=== PATIENT | female | born 1975 ===

== ENCOUNTER 2017-05-18 11:49 | Day surgery (SDC) | payer OTHER ==
[~2017-05-18 11:49] MED LIST: Buffered Lidocaine 0.9% SYRIN* 5 ML/SYR SYRINGE INTRADERM ONE; Famotidine IV* 10 MG/ML 2 ML (20 mg) IV ONE; Famotidine IV* 10 MG/ML 2 ML (20 mg) ONE
[2017-05-18] MEDS ORDERED: fentaNYL* 50 MCG/ML 2 ML VIAL (100 MCG VIAL) ONE (11:50)
[2017-05-18] MEDS ORDERED: Midazolam* 1 MG/ML 5 ML VIAL (5 MG) ONE (11:50)
[2017-05-18 12:21] LABS: Hematocrit 42 % (35-47); Hemoglobin 14.6 g/dl (12.0-16.0); Mean Corpuscular HGB Conc 35 g/dl (31-36); Mean Corpuscular Hemoglobin 36 pg (27-31); Mean Corpuscular Volume 105 fL (80-97); Mean Platelet Volume 8 um3 (7.4-10.4); Red Blood Count 4.01 10^6/ul (4.0-5.4); Red Cell Distribution Width 13 % (10.5-15); White Blood Count 5.3 10^3/ul (3.5-10.8)
[2017-05-18] MEDS ORDERED: DiMENhydriNATE IV* 50 MG/ML VIAL IV PUSH PRN (12:32)
[2017-05-18] MEDS ORDERED: oxyCODONE TAB* 5 MG TAB PO PRN (12:32)
[2017-05-18] MEDS ORDERED: HYDROmorphone INJ* 1 MG/ML CARPUJECT SYRINGE IV PRN (12:32)
[2017-05-18] MEDS ORDERED: Acetaminophen TAB* 325 MG PO PRN (12:32)
[2017-05-18] MEDS ORDERED: Ondansetron INJ* 2 MG/ML VIAL ONE (12:58)
[2017-05-18] MEDS ORDERED: Lidocaine 2% PF * 5 ML VIAL ONE (12:58)
[2017-05-18] MEDS ORDERED: Ketorolac INJ* 30 MG/ML 1 ML VIAL ONE (12:58)
[2017-05-18] MEDS ORDERED: Propofol* 10 MG/ML 20 ML BTL IV PUSH ONE (12:58)
[2017-05-18] MEDS ORDERED: Lidocaine 1% INJ* 10 MG/ML 30 ML SDV ONE (13:04)
[2017-05-18 14:26] VITALS: BP 124/88
--- NOTE | 2017-05-19 10:49 | OP ---
OPERATIVE REPORT: DATE OF OPERATION: 05/18/17 - [facility] DATE OF : 73 SURGEON: Therese Chavez MD ANESTHESIOLOGIST: Dr. Powell. ANESTHESIA: Spinal. PRE-OPERATIVE DIAGNOSIS: Large right Bartholin's duct cyst. POST-OP DIAGNOSIS: Large right Bartholin's duct cyst. OPERATIVE PROCEDURE: Right Bartholin's duct cyst marsupialization. ESTIMATED BLOOD LOSS: Less than 10 mL. URINE OUTPUT: 75 mL. IV FLUIDS: 700 mL lactated Ringer's. MATERIALS TO LAB: Bartholin's cyst biopsy. INDICATIONS: This patient was a 41-year-old 1, para 0, who presented to the office this week, reporting about 10 years of a right Bartholin's duct cyst. Initially, her previous physician had recommended against any treatment as it was not extremely uncomfortable for her. However, over the years, it continued to get larger. The patient had it drained on 2 separate occasions over the last couple of years. The most recent one was about 4 months ago. A Word catheter was placed but fell out after only 2 days. The cyst re-formed quickly and the patient reports that she has had persistent significant discomfort with it. On examination in the office, the cyst measured about 5 cm and significantly distorted the vulva. There was no evidence of infection or abscess. We discussed her options and she desired to proceed with marsupialization in the operating room. She was counseled and consent was signed. FINDINGS: Large Bartholin's duct cyst on the right side as expected. Fluid within the cyst was a medium brown consistent with old blood, possible endometriosis. COMPLICATIONS: None. DESCRIPTION OF PROCEDURE: The risks, benefits, and alternatives were described to the patient and informed consent was obtained. The patient was taken to the operating room with IV running where spinal anesthesia was induced and found to be adequate. The patient was prepped and draped in a normal sterile fashion in the high lithotomy position in [facility]. A time-out was performed. The bladder was emptied. Lidocaine 1% was then injected just inside the introitus of the vagina on the right side and approximately 2.5 cm incision was then made with a 15 blade scalpel. The vaginal epithelium was grasped with an Allis clamp and retracted downward. The scalpel was then used to continue dissection down until the cyst wall had been successfully opened. The cyst drained a large amount of brown fluid, which was suctioned. The opening to the cyst was then extended to the full side of the incision, about 2 to 2.5 cm. Bleeding on the edges was very light and a few places were minimally cauterized. The entire cyst was then copiously irrigated with saline. The wall of the cyst was elevated and small biopsy was taken and sent for pathology. The cyst wall was then sutured to the vaginal epithelium with 2 running stitches, both internal and external to the introitus. This was done with 2-0 and 3-0 Vicryl. At that time, the cyst was completely drained and marsupialization was complete. Hemostasis was excellent. The patient was then returned to the supine position. The procedure was completed. The patient tolerated the procedure very well. Sponge, lap and needle counts were correct x2. [id number]/CPS #: [id number] MTDD
== END 2017-05-18 14:20 | disposition home or self-care (01) ==
LOC: OR 11:49
PROVIDERS: ATTEND Obstetrics & Gynecology
DX: N75.0 Cyst of Bartholin's gland (principal); F17.210 Nicotine dependence, cigarettes, uncomplicated; F41.9 Anxiety disorder, unspecified
CPT/HCPCS: 36415; 81025; 85025; 88304; J1885; J2001; J2250; J2405; J2704; J3010

== ENCOUNTER 2018-02-15 18:44 | Emergency (ER) | payer OTHER ==
[2018-02-15] MEDS ORDERED: Tetracaine 0.5% OPTH.SOL 4 ML* 1 DROP BTL BOTH EYES ONE (22:30)
[2018-02-15] MEDS ORDERED: Fluorescein Sod TOPICAL 0.6* 0.6 MG TEST OPHTHALMIC ONE ×3 (23:25→23:26)
--- NOTE | 2018-02-16 00:06 | ED ---
Throat Pain/Nasal Congestion - HPI Summary HPI Summary: Patient sent from [facility] to the ED for further evaluation of bilateral eye redness and discharge 4 days. States this decreased visual acuity 2 days. Denies eye pain, trauma, foreign body. Positive contact with, but states she doesn't want them for 2 weeks. Normally wears glasses. Denies fever , cough, sore throat, ear pain, BLACK, nasal discharge, CP, SOB, N/V/D, abdomen pain, change in urinary BM. - History of Current Complaint Chief Complaint: EDEyeProblem Time Seen by Provider: 02/15/18 20:59 Hx Obtained From: Patient Onset/Duration: Gradual Onset Severity: Moderate Associated Signs And Symptoms: Positive: Negative - Allergies/Home Medications Allergies/Adverse Reactions: Allergies Allergy/AdvReac Type Severity Reaction Status Date / Time No Known Allergies Allergy Verified 02/15/18 18:50 Home Medications: Home Medications NK [No Home Medications Reported] 02/16/18 [History Confirmed 02/16/18] PMH/Surg Hx/FS Hx/Imm Hx Endocrine/Hematology History: Denies: Hx Anticoagulant Therapy History: Reports: Hx Kidney Stones - hx of passed on own, Other Problems/ Disorders - right bartholin cyst Denies: Hx Dialysis Sensory History: Reports: Hx Contacts or Glasses - both, will wear glasses day of surgery, Hx Hearing Aid - bilateral Opthamlomology History: Reports: Hx Contacts or Glasses - both, will wear glasses day of surgery Neurological History: Denies: Hx CVA Psychiatric History: Reports: Hx Anxiety - prn med - Surgical History Surgery Procedure, Year, and Place: pt never had surgery Hx Anesthesia Reactions: No - never had surgery Infectious Disease History: No Infectious Disease History: Denies: Traveled Outside the [place] in Last 30 Days - Social History Alcohol Use: Weekly Alcohol Amount: reports 3-5 glasses wine per week Substance Use Type: Reports: None Smoking Status (MU): Current Every Day Smoker Type: Cigarettes Amount Used/How Often: reports 2 cigs per day for 10 years Review of Systems Constitutional: Negative Positive: Blurred Vision ENT: Negative Cardiovascular: Negative Respiratory: Negative Gastrointestinal: Negative Genitourinary: Negative Musculoskeletal: Negative Skin: Negative Neurological: Negative Psychological: Normal All Other Systems Reviewed And Are Negative: Yes Physical Exam Triage Information Reviewed: Yes Vital Signs On Initial Exam: Initial Vitals Temp Pulse Resp BP Pulse Ox 97.7 F 122 16 121/97 97 02/15/18 18:50 02/15/18 18:50 02/15/18 18:50 02/15/18 18:50 02/15/18 18:50 Vital Signs Reviewed: Yes Appearance: Positive: Well-Appearing Skin: Positive: Warm Head/Face: Positive: Normal Head/Face Inspection Eyes: Positive: EOMI, ADELA, Conjunctiva Inflammed, Discharge ENT: Positive: Normal ENT inspection Neck: Positive: Supple Respiratory/Lung Sounds: Positive: Clear to Auscultation Cardiovascular: Positive: Normal Abdomen Description: Positive: Nontender Musculoskeletal: Positive: Normal Neurological: Positive: Normal Psychiatric: Positive: Normal AVPU Assessment: Alert - [place] Coma Scale Best Eye Response: 4 - Spontaneous Best Motor Response: 6 - Obeys Commands Best Verbal Response: 5 - Oriented Coma Scale Total: 15 Diagnostics - Vital Signs Vital Signs Temp Pulse Resp BP Pulse Ox 02/15/18 18:50 97.7 F 122 16 121/97 97 - Laboratory Lab Statement: Any lab studies that have been ordered have been reviewed, and results considered in the medical decision making process. EENT Course/Dx - Course Course Of Treatment: Patient sent from [facility] to the ED for further evaluation of bilateral eye redness and discharge 4 days. States this decreased visual acuity 2 days. Denies eye pain, trauma, foreign body. Positive contact with, but states she doesn't want them for 2 weeks. Normally wears glasses. Denies fever, cough, sore throat, ear pain, BLACK, nasal discharge , CP, SOB, N/V/D, abdomen pain, change in urinary BM. Bilateral conjunctival injection. Discharge from the eyes bilaterally. EOMs intact. Visual acuity checked urgent care. Bilateral corneal abrasions. Gentamicin drops started here in the ED. Tube given to patient. 2 drops every 4 hours. Follow-up with ophthalmology - Diagnoses Provider Diagnoses: Corneal abrasion of both eyes Discharge - Sign-Out/Discharge Documenting (check all that apply): Patient Departure - Discharge Plan Condition: Stable Disposition: HOME Patient Education Materials: Corneal Abrasion (ED) Referrals: Therese Chavez MD [Primary Care Provider] - Additional Instructions: 2 drops of antibiotic solution in each eye every 4 hours. Follow-up with ophthalmology sunday. Return to the ED for any new or worsening symptoms - Billing Disposition and Condition Condition: STABLE Disposition: Home
[2018-02-16] MEDS ORDERED: Gentamicin 0.3% OPHTH.SOLN* 5 ML BTL BOTH EYES SCH (00:30)
[2018-02-16 01:31] VITALS: BP 122/74
== END 2018-02-16 01:30 | disposition home or self-care (01) ==
LOC: ED 18:44
DX: S05.02XA Injury of conjunctiva and corneal abrasion without foreign body, left eye, initial encounter (principal); S05.01XA Injury of conjunctiva and corneal abrasion without foreign body, right eye, initial encounter; X58.XXXA Exposure to other specified factors, initial encounter; Y92.9 Unspecified place or not applicable; F17.210 Nicotine dependence, cigarettes, uncomplicated
CPT/HCPCS: 99283; A9270-GY